=== PATIENT | female | born 1940 | race Caucasian/White ===

== ENCOUNTER 2017-11-15 20:20 | Emergency (ER) | payer MEDICARE, MEDICAID ==
--- NOTE | 2017-11-15 20:39 | ERNOTE ---
Lower Extremity HPI - General Lower Extremities Pain: hip: left - dislocation Time Seen by Provider: 11/15/17 20:30 Source: patient Exam Limitations: no limitations - Immun/Allergies/Home Medications Immunizations: IMMUNIZATION HX Immunizations Up to Date Yes History of Influenza Vaccine Yes Hx Pneumococcal Vaccination Yes Allergies/Adverse Reactions: Allergies Allergy/AdvReac Type Severity Reaction Status Date / Time Penicillins AdvReac Verified 11/15/17 20:35 Home Medications: HOME MEDICATIONS Acetaminophen [Tylenol] 650 mg PO Q4H PRN 11/15/17 [Last Taken Unknown] Amlodipine Besylate 5 mg PO DAILY 11/15/17 [Last Taken Unknown] Aspirin 81 mg PO DAILY 11/15/17 [Last Taken Unknown] Atorvastatin Calcium 20 mg PO DAILY 11/15/17 [Last Taken Unknown] Budesonide/Formoterol Fumarate [Symbicort 160-4.5 Mcg Inhaler] 10.2 gm IH BID [Last Taken Unknown] Cholecalciferol (Vitamin D3) [Vitamin D3] 1,000 unit PO DAILY 11/15/17 [Last Taken Unknown] Clozapine 125 mg PO HS 11/15/17 [Last Taken Unknown] Ferrous Sulfate [Iron] 325 mg PO DAILY 11/15/17 [Last Taken Unknown] Gabapentin [Neurontin] 100 mg PO BID 11/15/17 [Last Taken Unknown] Sennosides [Senna Lax] 8.6 mg PO DAILY 11/15/17 [Last Taken Unknown] - History of Present Illness Narrative: Pt fell approximately a week ago and has had left hip discomfort since that time. Today pt was seen at [facility] and found to have left hip prosthesis dislocation. Reduction was attempted there but unsuccessful. Dr. Ramírez was contacted and he accepted transfer here for reduction under sedation Occurred: last week Location of Incident: home Method of Injury: Reports: fell Reason for Fall: Reports: unknown Associated Symptoms: Reports: unable to bear weight Other Injuries: Reports: none Prior Treament: Reports: recently seen, treated by physician - at [facility] Review of Systems - Review of Systems Constitutional: Present: no symptoms reported EYE: Present: no symptoms reported ENT: Present: no symptoms reported Respiratory: Absent: shortness of breath Cardiology: Absent: chest pain Gastrointestinal/Abdominal: Present: no symptoms reported Genitourinary: Present: no symptoms reported Musculoskeletal: Present: See HPI, back pain - lumbar - Patient's Past Medical History Patient History - Medical: Diabetes Type 2, Dementia, GERD, Hypothyroidism, Other Patient History - Cardiac/Respiratory: COPD Patient History - Cancer: No Hx of Cancer Patient History - Surgical Procedures: Total Hip Replacement Patient History - Other: None LMP (females 10-50): post - Social History Living Situations: assisted living Psych History: Hx of Schizophrenia Smoking Status: Former smoker Alcohol Use: none Drug Use: none - Immunizations Immunizations Up to Date: Yes Hx Pneumococcal Vaccination: Yes History of Influenza Vaccine: Yes Physical Exam - Physical Exam General Appearance: Present: wd/wn, alert, no apparent distress Head Exam: Present: normal inspection, no evidence of injury Neck: Present: normal inspection, nontender Respiratory: Present: no respiratory distress, normal breath sounds, lungs clear Cardiovascular/Chest: Present: regular rate, rhythm, no murmur, normal peripheral pulses Peripheral Pulses: N=norm/S=strong/W=weak/B=bound/A=absent: Dorsalis-pedis (R): Normal, Dorsalis-pedis (L): Normal Gastrointestinal/Abdominal: Present: nontender, nondistended, soft Extremity Exam: Present: decreased range of motion, bony tenderness - left hip Neurological Exam: Present: alert, oriented, normal mood/affect, no motor/ sensory deficits Skin Exam: Present: normal color, warm/dry Lymphatic Exam: Present: no adenopathy ED Progress - Vital Signs Vital Signs: Vital Signs 11/15/17 20:22 Temperature 36.4 C L Pulse Rate 110 H Respiratory 15 Rate Blood Pressure 138/72 O2 Sat by Pulse 99 Oximetry - X-Ray X-Ray #1 X-Ray: hip Interpretation: Reviewed by me X-ray Comments: left hip films from [facility]. Prosthesis dislocation with radiolucent ring from constraining cup also dislocated from the acetabular component. - Progress/Reassessment Chief Complaint: Hip Pain/Injury Progress:: Unchanged Progress Note-Subjective: 11/15/17 20:45 called nursing show operations supervisor and she contacted anesthesia, they will be here in less than 30 min 11/15/17 21:07 reviewed x-rays and called Dr. Ramírez to have him look at the x-ray before coming in. 11/15/17 21:12 Dr. Ramírez called and cofirmed that he could not reduce this hip as the prosthesis is a constrained prosthesis and she has pulled out the cup. He stated that only the [facility] would be able to fix that. 11/15/17 21:[address] Felicia Garcia at [facility] ED. She agrees to accept the patient in transfer. Departure Clinical Impression: Broken internal left hip prosthesis, initial encounter Dislocation of hip joint prosthesis Qualifiers: Encounter type: initial encounter Qualified Code(s): T84.029A - Dislocation of unspecified internal joint prosthesis, initial encounter - Departure Disposition: [facility] Condition: Good
[2017-11-15 21:55] VITALS: BP 138/62
[2017-11-15] MEDS ORDERED: ONDANSETRON HCL/PF 2 MG/ML VIAL IV ONE (22:06)
[2017-11-15] MEDS ORDERED: MORPHINE SULFATE 2 MG/ML DISP.SYRIN IV ONE (22:06)
[2017-11-15] MEDS ORDERED: MORPHINE SULFATE 2 MG/ML DISP.SYRIN ONE (22:06)
[2017-11-15] MEDS ORDERED: ONDANSETRON HCL/PF 2 MG/ML VIAL ONE (22:07)
== END 2017-11-15 22:13 | disposition short-term general hospital (02) ==
LOC: ER 20:20
DX: J44.9 Chronic obstructive pulmonary disease, unspecified; E03.9 Hypothyroidism, unspecified; K21.9 Gastro-esophageal reflux disease without esophagitis; E11.9 Type 2 diabetes mellitus without complications; T84.011A Broken internal left hip prosthesis, initial encounter; W19.XXXD Unspecified fall, subsequent encounter; T84.021A Dislocation of internal left hip prosthesis, initial encounter; F03.90 Unspecified dementia, unspecified severity, without behavioral disturbance, psychotic disturbance, mood disturbance, and anxiety
CPT/HCPCS: 96374; 96375; 99284; J2405